=== PATIENT | female | born 1980 | race Caucasian/White ===

== ENCOUNTER 2016-10-03 22:06 | Emergency (ER) | payer MEDICAID ==
[~2016-10-03] VITALS: Ht 172.7 cm; Wt 77.0 kg
[~2016-10-03 22:06] MED LIST: PREN-99 PO; VITA1CAP PO
[2016-10-03 23:01] VITALS: Ht 172.7 cm; Wt 77.0 kg
--- NOTE | 2016-10-04 01:14 | ERD ---
ER Documentation Chief Complaint Date/Time DATE: 10/04/16 TIME: 01:13 Chief Complaint PELVIC PAIN/PRESSURE STARTED TODAY NO VAG BLEED HPI 36-year-old female presents here in emergency department for complaints of pelvic pain, lower abdominal pain started today, had an episode of diarrhea yesterday. Patient denies any blood in the stool or black stool. Patient denies any nausea or vomiting. Patient denies any fever or chills. Last menstruation was 1 year ago since patient is breast-feeding. Patient has not gotten her period yet. Patient denies any fever or chills. Patient denies hematuria or dysuria. Patient denies any flank pain. ROS All systems reviewed and are negative except as per history of present illness. Medications Home Meds Reported Medications Vitamin B Complex (Vitamin B Complex) 1 Each Capsule, 1 EACH PO DAILY, CAP 05/05/16 Vit #76/Iron,Carb/FA (Pnv 29-1 Tablet) 1 Each Tablet, 1 EACH PO DAILY, TAB 05/05/16 Allergies Allergies: Coded Allergies: codeine (Verified Allergy, Mild, 05/05/16) FEELS FATIGUED WITH ANXIETY PMhx/Soc Medical and Surgical Hx: pt denies Medical Hx, pt denies Surgical Hx History of Surgery: No Anesthesia Reaction: No Hx Neurological Disorder: No Hx Respiratory Disorders: No Hx Cardiac Disorders: No Hx Psychiatric Problems: No Hx Miscellaneous Medical Probl: No Hx Alcohol Use: No Hx Substance Use: No Hx Tobacco Use: No Smoking Status: Never smoker FmHx Family History: diabetes Physical Exam Vitals Vital Signs Date Time Temp Pulse Resp B/P Pulse Ox O2 Delivery O2 Flow Rate FiO2 10/03/16 23:01 99.2 69 20 101/63 98 Physical Exam GENERAL: The patient is well developed and appropriate for usual state of health, in no apparent distress. CHEST: Clear to auscultation bilaterally. There are no rales, wheezes or rhonchi. HEART: Regular rate and rhythm. No murmurs, clicks, rubs or gallops. No S3 or S4. ABDOMEN: Soft, nontender and nondistended. Good bowel sounds. No rebound or guarding. No gross peritonitis. No gross organomegaly or masses. No Mustafa sign or McBurney point tenderness. BACK: No midline or flank tenderness. EXTREMITIES: Equal pulses bilaterally. There is no peripheral clubbing, cyanosis or edema. No focal swelling or erythema. Full range of motion. Grossly neurovascularly intact. NEURO: Alert and oriented. Cranial nerves 2-12 intact. Motor strength in all 4 extremities with 5/5 strength. Sensation grossly intact. Normal speech and gait. SKIN: There is no apparent rash or petechia. The skin is warm and dry. HEMATOLOGIC AND LYMPHATIC: There is no evidence of excessive bruising or lymphedema. No gross cervical, axillary, or inguinal lymphadenopathy. Result Diagram: 10/04/16 0122 10/04/16 0122 Results 24 hrs Laboratory Tests Test 10/04/16 01:22 White Blood Count 6.610^3/ul Red Blood Count 4.4910^6/ul Hemoglobin 13.6g/dl Hematocrit 40.3% Mean Corpuscular Volume 89.8fl Mean Corpuscular Hemoglobin 30.3pg Mean Corpuscular Hemoglobin Concent 33.7g/dl Red Cell Distribution Width 14.2% Platelet Count 27937^3/UL Mean Platelet Volume 11.0fl Neutrophils % 60.2% Lymphocytes % 28.5% Monocytes % 7.7% Eosinophils % 2.9% Basophils % 0.5% Nucleated Red Blood Cells % 0.0/100WBC Neutrophils # 4.010^3/ul Lymphocytes # 1.910^3/ul Monocytes # 0.510^3/ul Eosinophils # 0.210^3/ul Basophils # 0.010^3/ul Nucleated Red Blood Cells # 0.010^3/ul Urine Color LT. YELLOW Urine Clarity CLEAR Urine pH 6.0 Urine Specific [place] <=1.005 Urine Ketones NEGATIVE Urine Nitrite NEGATIVE Urine Bilirubin NEGATIVE Urine Urobilinogen 0.2 E.U./dL Urine Leukocyte Esterase NEGATIVE Urine Hemoglobin NEGATIVE Urine Glucose NEGATIVE% Urine Total Protein NEGATIVE Sodium Level 136mmol/L Potassium Level 3.5mmol/L Chloride Level 103mmol/L Carbon Dioxide Level 28mmol/L Anion Gap 9 Blood Urea Nitrogen 14mg/dl Creatinine 0.82mg/dl Glucose Level 132mg/dl Calcium Level 9.0mg/dl Total Bilirubin 0.4mg/dl Direct Bilirubin 0.00mg/dl Indirect Bilirubin 0.4mg/dl Aspartate Amino Transf (AST/SGOT) 25IU/L Alanine Aminotransferase (ALT/SGPT) 35IU/L Alkaline Phosphatase 97IU/L Total Protein 6.6g/dl Albumin 4.0g/dl Globulin 2.60g/dl Albumin/Globulin Ratio 1.53 Lipase 128U/L Beta HCG, Quantitative < 2.4mIU/ml PROCEDURE: ULTRASOUND PELVIS CLINICAL INDICATION: 36-year-old female with pelvic pain. TECHNIQUE: Multiple sonographic images of the pelvis were obtained utilizing a transabdominal and endovaginal technique. The images were reviewed on a PACS workstation. COMPARISON: None. FINDINGS: The uterus is visualized and measures 8.0 x 3.8 x 4.3 cm. The endometrial echo complex is within normal limits and measures 9.2 mm. There is mild free fluid within the cul-de-sac. The right ovary has a normal echotexture and measures 2.8 x 1.9 x 2.6 cm. The left ovary has a normal echotexture and measures 3.0 x 2.1 x 2.3 cm. Small bilateral ovarian follicular cysts are present. There is flow identified within the ovaries bilaterally. No adnexal masses are noted. IMPRESSION: Mild pelvic free fluid. .Ronaldo Knowles MD, MD Date Time Electronically viewed and signed by .Ronaldo Knowles MD, MD on 10/04/2016 02:27 .M/ CC: LISA SOLANO [employer] Procedures/MDM Medical Decision Making: Patient's pelvic pain nonspecific at this time, patient also had an episode of diarrhea was likely can be viral. No symptoms of dehydration. There is low suspicion for abdominal emergencies at this time. Patients abdominal exam is normal at this time. Patients radiology exam does not show any abdominal emergencies at this time. Other radiology exams not indicated at this time. No leukocytosis, no bandemia, patient does not have any fever. Low suspicion for an acute bacterial infection. There is low suspicion for appendicitis, cholecystitis, abdominal aortic aneurysms or peritonitis at this time. There is low suspicion for sepsis. Patient appears well and is hemodynamically stable. Disposition: Home. Condition: Stable Prescription ibuprofen, Bentyl Instructions: Patient is advised to take medications as prescribed. Patient is advised to rest, increase fluid intake and do brat diet for next 1-2 days and progress as tolerated. Patient is advised that if symptoms are worse, severe abdominal pain, uncontrolled vomiting, high fever, severe flank pain, worst signs and symptoms, to return to the emergency department immediately. Otherwise, patient can follow up with primary care doctor in 5-7 days. Departure Diagnosis: Primary Impression: Viral gastroenteritis Condition: Stable Patient Instructions: Gastroenteritis, Viral (6Y-Adult) Additional Instructions: Patient is advised to take medications as prescribed. Patient is advised to rest, increase fluid intake and do brat diet for next 1-2 days and progress as tolerated. Patient is advised that if symptoms are worse, severe abdominal pain , uncontrolled vomiting, high fever, severe flank pain, worst signs and symptoms , to return to the emergency department immediately. Otherwise, patient can follow up with primary care doctor in 5-7 days. LISA SOLANO NP Oct 04, 2016 01:14
[2016-10-04 02:02] LABS: ADD SCAN DIFF NO
[2016-10-04 02:05] LABS: BASOPHILS % 0.5 % (0.0-2.0); EOSINOPHILS # 0.2 10^3/ul (0.0-0.5); EOSINOPHILS % 2.9 % (0.0-7.0); HEMATOCRIT 40.3 % (37.0-47.0); HEMOGLOBIN 13.6 g/dl (12.0-16.0); LYMPHOCYTES # 1.9 10^3/ul (0.8-2.9); LYMPHOCYTES % 28.5 % (15.0-51.0); MEAN CORPUSCULAR HEMOGLOBIN 30.3 pg (29.0-33.0); MEAN CORPUSCULAR HGB CONC 33.7 g/dl (32.0-37.0); MEAN CORPUSCULAR VOLUME 89.8 fl (82.0-101.0); MONOCYTE # 0.5 10^3/ul (0.3-0.9); MONOCYTES % 7.7 % (0.0-11.0); NEUTROPHILS % 60.2 % (39.0-77.0); PLATELET COUNT 201 10^3/UL (140-415); RED BLOOD COUNT 4.49 10^6/ul (4.20-5.40); RED CELL DISTRIBUTION WIDTH 14.2 % (11.5-14.5); WHITE BLOOD COUNT 6.6 10^3/ul (4.8-10.8)
[2016-10-04 02:18] LABS: ADD UMIC NO; POTASSIUM 3.5 mmol/L (3.5-5.1); URINE BILIRUBIN (Dip) NEGATIVE (NEGATIVE); URINE BLOOD (Dip) NEGATIVE (NEGATIVE); URINE COLOR LT. YELLOW (YELLOW); URINE GLUCOSE (Dip) NEGATIVE (NEGATIVE); URINE KETONES (Dip) NEGATIVE (NEGATIVE); URINE LEUKOCYTE ESTERASE (Dip) NEGATIVE (NEGATIVE); URINE NITRITE (Dip) NEGATIVE (NEGATIVE); URINE TOTAL PROTEIN (Dip) NEGATIVE (NEGATIVE); URINE UROBILINOGEN (Dip) 0.2 E.U./dL (0.1-1.0)
[2016-10-04 02:20] LABS: ALBUMIN/GLOBULIN RATIO 1.53; BILIRUBIN,INDIRECT 0.4 mg/dl (0-1.1); BILIRUBIN,TOTAL 0.4 mg/dl (0.2-1.3); CREATININE 0.82 mg/dl (0.44-1.00); TOTAL PROTEIN 6.6 g/dl (6.1-8.1)
--- NOTE | 2016-10-04 02:28 | RADRPT ---
PROCEDURE: ULTRASOUND PELVIS CLINICAL INDICATION: 36-year-old female with pelvic pain. TECHNIQUE: Multiple sonographic images of the pelvis were obtained utilizing a transabdominal and endovaginal technique. The images were reviewed on a PACS workstation. COMPARISON: None. FINDINGS: The uterus is visualized and measures 8.0 x 3.8 x 4.3 cm. The endometrial echo complex is within nor mal limits and measures 9.2 mm. There is mild free fluid within the cul-de-sac. The right ovary has a normal echotexture and measures 2.8 x 1.9 x 2.6 cm. The left ovary has a normal echotexture and m easures 3.0 x 2.1 x 2.3 cm. Small bilateral ovarian follicular cysts are present. There is flow iden tified within the ovaries bilaterally. No adnexal masses are noted. IMPRESSION: Mild pelvic free fluid. .Ronaldo Knowles MD, MD Date Time Electronically viewed and signed by .Ronaldo Knowles MD, on 10/04/2016 02:27 .M/
[2016-10-04] MEDS ORDERED: IBUP-1542 PO (03:17)
[2016-10-04] MEDS ORDERED: DICY10CA60 PO (03:17)
[2016-10-04 03:31] VITALS: BP 109/69; PULSE 55; RESP 16
== END 2016-10-04 03:32 | disposition home or self-care (01) ==
LOC: FTE 22:06
DX: A08.4 Viral intestinal infection, unspecified (principal)
CPT/HCPCS: 36415; 76830; 76856; 80053; 81003; 83690; 84702; 85025; Z7502